=== PATIENT | female | born 1990 ===

== ENCOUNTER 2017-03-13 18:16 | Emergency (ER) | payer SELFPAY | END 2017-03-13 18:39 | disposition left against medical advice (07) | LOC: CED 18:16 | DX: Z53.21 Procedure and treatment not carried out due to patient leaving prior to being seen by health care provider (principal) ==

== ENCOUNTER → 2017-03-13 | Outpatient (CLI) | payer OTHER | LOC: GIMAGING 19:22 | PROVIDERS: ATTEND Nurse Practitioner | DX: T14.8XXA Other injury of unspecified body region, initial encounter (principal); W45.8XXA Other foreign body or object entering through skin, initial encounter | CPT/HCPCS: 73060-PO ==